=== PATIENT | female | born 1995 | race American Indian/Alaskan Native ===

== ENCOUNTER 2019-08-01 17:43 | Emergency (ER) | payer MEDICAID ==
--- NOTE | 2019-08-01 18:19 | Event Note ---
ED Screening Note ED Screening Note: This is a 25-year-old female that presents with generalized pain and bilateral leg pain with history of sickle cell and stated symptoms are similar to her sickle cell crisis. This initial assessment/diagnostic orders/clinical plan/treatment(s) is/are subject to change based on patients health status, clinical progression and re- assessment by fellow clinical providers in the ED. Further treatment and workup at subsequent clinical providers discretion. Patient/guardian urged not to elope from the ED as their condition may be serious if not clinically assessed and managed. Initial orders include: labs sent to Main ED
[2019-08-01 19:43] LABS: Hemoglobin 10.1 gm/dl (10.1-14.3); Mean Corpuscular HGB Conc 34 % (30-34); Mean Corpuscular Volume 102 fl (79-97); Platelet Count 794 K/mm3 (140-440); Red Blood Count 2.94 M/mm3 (3.65-5.03)
[2019-08-01 19:57] LABS: BUN/Creatinine Ratio 13; Blood Urea Nitrogen 5 mg/dL (7-17); Calcium 9.5 mg/dL (8.4-10.2); Hemolysis Index 10
[2019-08-01 20:35] LABS: Total Cells Counted 100
[2019-08-01 20:36] LABS: Anisocytosis 2+; Eosinophils % (Manual) 0 % (0.0-4.3); Macrocytosis 1+
[2019-08-01 20:37] LABS: Burr Cells Few; Large Platelets 1+; Sickle Cells 1+; Target Cells Few
[2019-08-01 20:38] LABS: Platelet Estimate Consistent w Auto; Stomatocytes Few
[2019-08-01] MEDS ORDERED: SODIUM CHLORIDE 0.9% 1000 ML 1,000 ML IV ONE (20:44)
[2019-08-01] MEDS ORDERED: HYDROmorphone 1 MG/1 ML INJ IV ONE ×2 (20:44→20:59)
[2019-08-01] MEDS ORDERED: diphenhydrAMINE 50 MG/ML VIAL ONE (20:46)
[2019-08-01] MEDS ORDERED: HYDROmorphone 1 MG/1 ML INJ ONE (20:46)
[2019-08-01] MEDS ORDERED: ONDANSETRON 4 MG/2 ML INJ ONE (20:46)
[2019-08-01] MEDS ORDERED: KETOROLAC 30 MG/1 ML INJ IV ONE (21:00)
--- NOTE | 2019-08-01 21:43 | Emergency Department Report ---
HPI - General Chief Complaint: Sickle Cell Crisis Time Seen by Provider: 08/01/19 18:18 - HPI HPI: 24-year-old -[place] female presents to the emergency department with complaint of bilateral leg pain and pain down the left side of her body that she feels is secondary to a sickle cell pain crisis. The patient was previously seen at [facility] earlier today and discharged. Patient is on folic acid, hydroxyurea and OxyContin. She does not currently have a laborer sawmill but says she has an appointment coming up on the with a new laborer sawmill. The patient feels that her legs are slightly swollen. She denies any redness, fluctuance, skin color change, rash. She denies any fever, chest pain, cough, shortness of breath. No recent travel or sick contacts at home. ED Past Medical Hx - Past Medical History Previous Medical History?: Yes Hx Sickle Cell Disease: Yes Additional medical history: heart murmur - Surgical History Past Surgical History?: Yes Additional Surgical History: D&C - Social History Smoking Status: Never Smoker Substance Use Type: None - Medications Home Medications: Home Medications Medication Instructions Recorded Confirmed Last Taken Type oxyCODONE /ACETAMINOPHEN [Percocet 1 tab PO Q6HR PRN #8 tablet 08/01/19 Unknown Rx 5/325] ED Review of Systems ROS: Stated complaint: SICKLE CELL CRISIS Other details as noted in HPI Comment: All other systems reviewed and negative Constitutional: denies: chills, fever Eyes: denies: eye pain, vision change ENT: denies: ear pain, throat pain Respiratory: denies: cough, shortness of breath Cardiovascular: denies: chest pain, palpitations Gastrointestinal: denies: abdominal pain, vomiting Genitourinary: denies: dysuria, discharge Musculoskeletal: arthralgia, myalgia Skin: denies: rash, lesions Neurological: denies: headache, weakness Physical Exam - Physical Exam Vital Signs: Vital Signs 08/01/19 18:09 Temperature 98.3 F Pulse Rate 104 H Respiratory 20 Rate Blood Pressure 126/84 O2 Sat by Pulse 100 Oximetry Physical Exam: GENERAL: The patient is well-developed well-nourished. HENT: Normocephalic. Atraumatic. Patient has moist mucous membranes. EYES: Extraocular motions are intact. NECK: Supple. Trachea is midline. CHEST/LUNGS: Clear to auscultation. There is no respiratory distress noted. HEART/CARDIOVASCULAR: Regular. There is no tachycardia. ABDOMEN: Abdomen is soft, nontender. Patient has normal bowel sounds. SKIN: Skin is warm and dry. No appreciable lower extremity swelling. NEURO: The patient is awake, alert, and oriented. The patient is cooperative. The patient has no focal neurologic deficits. Normal speech. MUSCULOSKELETAL: There is no obvious deformity. There is no limitation range of motion. There is no evidence of acute injury. ED Course Vital Signs 08/01/19 18:09 Temperature 98.3 F Pulse Rate 104 H Respiratory 20 Rate Blood Pressure 126/84 O2 Sat by Pulse 100 Oximetry ED Medical Decision Making - Lab Data Result diagrams: 08/01/19 19:24 08/01/19 19:24 - Radiology Data Radiology results: report reviewed DUPLEX DOPPLER LOWER EXTREMITY VEINS, BILATERAL INDICATION: LE pain and swelling. TECHNIQUE: Duplex doppler imaging was performed through the veins of both lower extremities using venous compression and other maneuvers. COMPARISON: None available. FINDINGS: Right Common Femoral vein: Negative. Right Superficial Femoral vein: Negative. Right Popliteal vein: Negative. Right Calf veins: Negative. Left Common Femoral vein: Negative. Left Superficial Femoral vein: Negative. Left Popliteal vein: Negative. Left Calf veins: Negative. Additional findings: None. IMPRESSION: 1. No sonographic evidence for DVT in either lower extremity. - Medical Decision Making This patient presents to the emergency department with a complaint of bilateral lower extremity pain and left-sided body pain that is been going on for the past few days. The patient was previously seen at [facility] earlier today and discharged from the emergency department. The patient has an appointment with a new laborer sawmill in 5 days. She had bilateral lower extremity venous Doppler ultrasound completed that did not show any sonographic evidence for DVT. The patient's hemoglobin was about 10. Reticulocyte count of 6. Patient does have a mild leukocytosis and thrombocytosis. However the patient does not have any fever or signs/symptoms of infection. Normal metabolic panel. Patient was given IV fluid resuscitation and a few doses of IV analgesia. Patient appears greatly improved with her pain score down to about a 3 out of 10 prior to discharge. Patient was seen ambulatory around the emergency department and both appears and feels stable. Stable vitals throughout her ED course. For all these reasons patient appears safe for discharge home at this time. She has been instructed to follow-up with her laborer sawmill as previously scheduled and to return to the ER with any worsening of her symptoms or any acute distress. - Differential Diagnosis Sickle cell pain crisis, rheumatoid arthritis, fibromyalgia, lupus Critical Care Time: No Critical care attestation.: If time is entered above; I have spent that time in minutes in the direct care of this critically ill patient, excluding procedure time. ED Disposition Clinical Impression: Sickle cell anemia with pain, Bilateral leg pain, Myalgia Disposition: TO HOME OR SELFCARE Is pt being admited?: No Condition: Stable Instructions: Sickle Cell Crisis (ED), Arthralgia (ED) Additional Instructions: Please follow-up with your laborer sawmill on the as previously scheduled. Return to the emergency department with any worsening of your symptoms or any acute distress. You have been prescribed a medication that is sedating and therefore should not be taken prior to driving, working, and responsible for children and in no way should be mixed with alcohol of any quantity. Prescriptions: oxyCODONE /ACETAMINOPHEN [Percocet 5/325] 1 tab PO Q6HR PRN #8 tablet PRN Reason: Pain Referrals: JANET SHIRLEY DO [Staff Physician] - 3-5 Days JAKE SCHWARTZ MD [Referring] - 3-5 Days Time of Disposition: 22:52
[2019-08-01] MEDS ORDERED: HYDROmorphone 2 MG/1 ML INJ IV ONE (22:15)
--- NOTE | 2019-08-01 22:57 | Vascular Lab Report ---
DUPLEX DOPPLER LOWER EXTREMITY VEINS, BILATERAL INDICATION: LE pain and swelling. TECHNIQUE: Duplex doppler imaging was performed through the veins of both lower extremities using venous brandyn edelmira and other maneuvers. COMPARISON: None available. FINDINGS: Right Common Femoral vein: Negative. Right Superficial Femoral vein: Negative. Right Popliteal vein: Negative. Right Calf veins: Negative. Left Common Femoral vein: Negative. Left Superficial Femoral vein: Negative. Left Popliteal vein: Negative. Left Calf veins: Negative. Additional findings: None. IMPRESSION: 1. No sonographic evidence for DVT in either lower extremity. Signer Name: Ava Alvarado MD Signed: 08/01/2019 10:53 PM Workstation Name: [id number]
[2019-08-01 23:03] VITALS: BP 110/66
== END 2019-08-01 23:30 | disposition home or self-care (01) ==
LOC: ED 17:43
DX: D57.80 Other sickle-cell disorders without crisis (principal); M79.604 Pain in right leg; M79.605 Pain in left leg; M79.18 Myalgia, other site
CPT/HCPCS: 36415; 80048; 84703; 85007; 85025; 85045; 93970; 96374; 96375; 96376; 99284; J1170; J1200; J1885; J2405; J7030